=== PATIENT | female | born 1975 | race Caucasian/White ===

== ENCOUNTER 2023-03-15 07:00 | Outpatient (CLI) | payer OTHER, SELFPAY ==
--- NOTE | 2023-03-15 06:39 | W.ANESCHARGE ---
Anesthesia Charges Start Date/Time Anesthesia Start Date: 03/15/23 Anesthesia Start Time: 07:42 Stop Date/Time Anesthesia Stop Date: 03/15/23 Anesthesia Stop Time: 08:05
--- NOTE | 2023-03-15 08:07 | W.ANESCHARGE ---
Anesthesia Charges Start Date/Time Anesthesia Start Date: 03/15/23 Anesthesia Start Time: 07:42 Stop Date/Time Anesthesia Stop Date: 03/15/23 Anesthesia Stop Time: 08:05
== END 2023-03-15 07:01 | disposition home or self-care (01) ==
LOC: OP CLINIC 07:01
PROVIDERS: PCP Registered Nurse; Visit Provider Internal Medicine
DX: Z12.11 Encounter for screening for malignant neoplasm of colon (principal); K64.4 Residual hemorrhoidal skin tags; K64.8 Other hemorrhoids
CPT/HCPCS: 45378; 811; 812; J2704

== ENCOUNTER 2023-03-29 14:22 | Outpatient (CLI) | payer OTHER, SELFPAY ==
--- NOTE | 2023-03-29 14:40 | CRLHL7_ITS ---
For Patients: As a result of the Century Cures Act, medical imaging exams and procedure reports are released immediately into your electronic medical record. You may view this report before your referring provider. If you have questions, please contact your health care provider. BILATERAL SCREENING MAMMOGRAM WITH COMPUTER-AIDED DETECTION AND TOMOSYNTHESIS TECHNIQUE: CC and MLO views were obtained. These mammographic images have been obtained using full-field digital technique. These mammographic images were interpreted with the benefit of computer-aided detection. Breast Tomosynthesis was used in this interpretation. COMPARISON FILM: 04/01/20, 12/27/16. FINDINGS: There are scattered areas of fibroglandular density IMPRESSION: There is no radiographic evidence for malignancy. ASSESSMENT: BI-RADS Category 1: Negative RECOMMENDATION: Routine screening mammogram in 1 year. A lay language report of this examination will be provided to the patient. John Snell M.D. Diagnostic Radiologist [email or web address] MISHA/Dictated by: John Snell MD @ 04/04/2023 11:17:00 AM (Electronically Signed)
== END 2023-03-29 14:23 | disposition home or self-care (01) ==
LOC: MAMMO 14:23
PROVIDERS: PCP Registered Nurse; Visit Provider Registered Nurse
DX: Z12.31 Encounter for screening mammogram for malignant neoplasm of breast (principal)
CPT/HCPCS: 77063; 77067

== ENCOUNTER 2024-01-17 14:05 | Outpatient (CLI) | payer OTHER, SELFPAY | END 2024-01-17 14:06 | disposition home or self-care (01) | PROVIDERS: Visit Provider Registered Nurse | DX: R53.83 Other fatigue (principal); Z83.42 Family history of familial hypercholesterolemia; Z82.62 Family history of osteoporosis; Z13.220 Encounter for screening for lipoid disorders; Z13.21 Encounter for screening for nutritional disorder; Z13.29 Encounter for screening for other suspected endocrine disorder | CPT/HCPCS: 80061; 82306; 84443 ==